=== PATIENT | male | born 1955 | race Caucasian/White ===

== ENCOUNTER 2025-02-25 10:09 | Inpatient (IN) | payer MEDICARE ==
[~2025-02-25] VITALS: Ht 165.1 cm; Wt 54.4 kg
[~2025-02-25 10:09] MED LIST: CLINDAMYCIN PO; DICYCLOMINE HCL20 MG PO; IBUPROFEN400 MG PO; ONDANSETRON ODT4 MG PO; PANTOPRAZOLE SO40 MG PO; TRAZODONE HCL50 MG PO
[2025-02-25 10:43] VITALS: TEMP 97
[2025-02-25] MEDS ORDERED: MECLIZINE HCL25 MG PO (10:53)
[2025-02-25] MEDS ORDERED: ZOLPIDEM TARTRAT5 MG PO (10:53)
[2025-02-25] MEDS ORDERED: HYDROCODON-ACE1 EA11 PO (10:53)
[2025-02-25] MEDS ORDERED: FLOMAX0.4 MG PO (10:53)
[2025-02-25] MEDS ORDERED: METOCLOPRAMIDE H5 MG PO (10:53)
[2025-02-25] MEDS ORDERED: OLANZAPINE2.5 MG PO (10:53)
[2025-02-25] MEDS ORDERED: SUCRALFATE1 GM PO (10:53)
[2025-02-25] MEDS ORDERED: SOD SUL-POTASS177 ML PO (10:53)
[2025-02-25] MEDS ORDERED: PROMETHAZINE HC25 M1 PO (10:53)
[2025-02-25] MEDS: SODIUM CHLORIDE 0.9% 1000ML 1,000 ML IV STA (11:28)
[2025-02-25 11:51] LABS: INR 0.82; PROTHROMBIN TIME 12.1 seconds (11.9-14.5)
[2025-02-25 11:52] LABS: PARTIAL THROMBOPLASTIN TIME 28.4 seconds (23.8-35.5)
[2025-02-25 12:27] LABS: BASOPHILS % 0.6 % (0.0-1.0); EOSINOPHILS % 0.3 % (0.0-6.0); HEMATOCRIT 40.4 % (38.2-49.6); LYMPHOCYTES % 47.1 % (18.0-39.1); MEAN CORPUSCULAR HEMOGLOBIN 24.8 pg (28-32); MEAN CORPUSCULAR HGB CONC 29.7 g/dL (31-35); MEAN CORPUSCULAR VOLUME 83.5 fL (81-99); MONOCYTES # (AUTO) 0.5 (0.2-0.8); MONOCYTES % 8.6 % (4.4-11.3); NEUTROPHILS # (AUTO) 2.7 (2.1-6.9); NEUTROPHILS % 42.9 % (38.7-80.0); PLATELET COUNT 526 x10e3/uL (140-360); RED BLOOD COUNT 4.84 x10e6/uL (4.3-5.7); RED CELL DISTRIBUTION WIDTH 16.1 % (11.7-14.4); WHITE BLOOD COUNT 6.26 x10e3/uL (4.8-10.8)
[2025-02-25 12:42] LABS: ALBUMIN 3.3 g/dL (3.5-5.0); ALBUMIN/GLOBULIN RATIO 0.8 (0.8-2.0); ANION GAP 17.7 mmol/L (8-16); BILIRUBIN,TOTAL 0.6 mg/dL (0.2-1.2); CALCIUM 8.8 mg/dL (8.4-10.2); CREATININE, SERUM 0.84 mg/dL (0.72-1.25); MAGNESIUM 2.1 MG/DL (1.3-2.1); POTASSIUM 4.7 mmol/L (3.5-5.1); TOTAL PROTEIN 7.2 g/dL (6.5-8.1)
[2025-02-25 12:43] LABS: TROPONIN I 0.002 ng/mL (0-0.300)
[2025-02-25] MEDS: ONDANSETRON HCL INJ 2MG/ML 2ML 2 MG/ML VIAL IV STA (12:57)
[2025-02-25] MEDS: Morphine 4mg INJECTION 4 MG/ML INJ IV STA (12:58)
[2025-02-25] MEDS: SODIUM CHLORIDE 0.9% 1000ML 1,000 ML IV SCH (14:25)
[2025-02-25 14:32] VITALS: PULSE 56; RESP 18
[2025-02-25 16:15] VITALS: BP 146/89; PULSE 57; RESP 19; TEMP 97.7; O2SAT 99
[2025-02-25] MEDS: Morphine 4mg INJECTION 4 MG/ML INJ IV PRN (17:47)
[2025-02-25] MEDS: CITRATE OF MAGNESIA 300ML BOTTLE PO ONE (17:47)
[2025-02-25] MEDS: ONDANSETRON HCL INJ 2MG/ML 2ML 2 MG/ML VIAL IV PRN (17:47)
[2025-02-25 20:01] VITALS: BP 120/77; PULSE 77; RESP 20; TEMP 98.1; O2SAT 94
[2025-02-25 23:56] VITALS: BP 114/78; PULSE 72; RESP 20; TEMP 98.4; O2SAT 95
[2025-02-26] VITALS (7 sets, daily range): BP systolic 93–157; BP diastolic 65–76; PULSE 60–70; RESP 18–19; TEMP 97.7–98.6; O2SAT 92–99
[2025-02-26 06:00] LABS: BASOPHILS % 0.6 % (0.0-1.0); EOSINOPHILS % 0.4 % (0.0-6.0); HEMATOCRIT 30.6 % (38.2-49.6); LYMPHOCYTES # (AUTO) 1.7 (1.0-3.2); LYMPHOCYTES % 36.8 % (18.0-39.1); MEAN CORPUSCULAR HEMOGLOBIN 24.4 pg (28-32); MEAN CORPUSCULAR HGB CONC 28.8 g/dL (31-35); MONOCYTES # (AUTO) 0.4 (0.2-0.8); MONOCYTES % 9.4 % (4.4-11.3); NEUTROPHILS # (AUTO) 2.4 (2.1-6.9); NEUTROPHILS % 52.4 % (38.7-80.0); PLATELET COUNT 349 x10e3/uL (140-360); RED CELL DISTRIBUTION WIDTH 16.1 % (11.7-14.4); WHITE BLOOD COUNT 4.67 x10e3/uL (4.8-10.8)
[2025-02-26 06:09] LABS: HEMOGLOBIN 8.8 g/dL (14.0-18.0)
[2025-02-26 06:22] LABS: ALBUMIN 2.4 g/dL (3.5-5.0); ALBUMIN/GLOBULIN RATIO 0.9 (0.8-2.0); ANION GAP 10.4 mmol/L (8-16); BILIRUBIN,TOTAL 0.4 mg/dL (0.2-1.2); CALCIUM 7.4 mg/dL (8.4-10.2); CREATININE, SERUM 0.75 mg/dL (0.72-1.25); TOTAL PROTEIN 5.2 g/dL (6.5-8.1)
[2025-02-26 06:23] LABS: CHOL/HDL RATIO 3.8 (3.9-4.7)
[2025-02-26 06:24] LABS: POTASSIUM 3.4 mmol/L (3.5-5.1)
[2025-02-26 06:35] LABS: ALBUMIN 2.4 g/dL (3.5-5.0); BILIRUBIN,DIRECT 0.2 mg/dL (0.0-0.5); BILIRUBIN,TOTAL 0.4 mg/dL (0.2-1.2); TOTAL PROTEIN 5.1 g/dL (6.5-8.1)
[2025-02-26 06:41] LABS: TROPONIN I 0.012 ng/mL (0-0.300)
[2025-02-26 06:55] LABS: THYROID STIMULATING HORMONE 1.575 uIU/mL (0.350-4.940)
[2025-02-26] MEDS: BISACODYL 5 MG TAB EC PO ONE ×2 (09:07→21:59)
[2025-02-26] MEDS: PROMETHAZINE 12.5MG/ NACL 0.9% 12.5 MG/50 ML BAG IV PRN (11:27)
[2025-02-26] MEDS: MECLIZINE HCL 12.5 MG TAB PO PRN (11:27)
[2025-02-26] MEDS: PEG (High)/E-LYTE SOLN 4,000 ML BTL PO ONE (17:56)
[2025-02-26 18:46] LABS: TROPONIN I 0.007 ng/mL (0-0.300)
[2025-02-27] VITALS (8 sets, daily range): BP systolic 112–160; BP diastolic 76–98; PULSE 68–80; RESP 18–20; TEMP 97.6–98.6; O2SAT 93–96
[2025-02-27 06:05] LABS: BASOPHILS % 0.6 % (0.0-1.0); EOSINOPHILS % 0.8 % (0.0-6.0); HEMATOCRIT 31.2 % (38.2-49.6); HEMOGLOBIN 9.1 g/dL (14.0-18.0); LYMPHOCYTES # (AUTO) 1.7 (1.0-3.2); LYMPHOCYTES % 33.5 % (18.0-39.1); MEAN CORPUSCULAR HEMOGLOBIN 24.6 pg (28-32); MEAN CORPUSCULAR HGB CONC 29.2 g/dL (31-35); MEAN CORPUSCULAR VOLUME 84.3 fL (81-99); MONOCYTES # (AUTO) 0.4 (0.2-0.8); MONOCYTES % 8.5 % (4.4-11.3); NEUTROPHILS # (AUTO) 2.9 (2.1-6.9); NEUTROPHILS % 56.4 % (38.7-80.0); PLATELET COUNT 395 x10e3/uL (140-360); RED CELL DISTRIBUTION WIDTH 15.9 % (11.7-14.4); WHITE BLOOD COUNT 5.17 x10e3/uL (4.8-10.8)
[2025-02-27 08:17] LABS: TROPONIN I 0.006 ng/mL (0-0.300)
[2025-02-27] MEDS: HYOSCYAMINE SULFATE 0.5 MG/ML INJ IV ONE (13:05)
[2025-02-27] MEDS ORDERED: LIDOCAINE HCL 2% LOCAL INJ 5 ML SDV VIAL INJ ONE (15:28)
[2025-02-27] MEDS ORDERED: PROPOFOL IV EMULSION 10 MG/ML 20 ML VIAL ONE (15:28)
[2025-02-27] MEDS ORDERED: PHENYLEPHRINE HCL 1% 10 MG/ML VIAL ONE (16:25)
[2025-02-27] MEDS: CITRATE OF MAGNESIA 300ML BOTTLE PO ONE (18:00)
[2025-02-27] MEDS: BISACODYL 5 MG TAB EC PO ONE (18:02)
[2025-02-28] VITALS (8 sets, daily range): BP systolic 112–142; BP diastolic 77–89; PULSE 60–77; RESP 16–20; TEMP 97.9–98.3; O2SAT 92–97
[2025-02-28] MEDS: TRAMADOL HCL 50 MG TAB PO PRN (10:13)
[2025-02-28 11:00] LABS: BASOPHILS % 0.2 % (0.0-1.0); EOSINOPHILS % 0.7 % (0.0-6.0); HEMATOCRIT 35.2 % (38.2-49.6); HEMOGLOBIN 10.4 g/dL (14.0-18.0); LYMPHOCYTES # (AUTO) 1.1 (1.0-3.2); LYMPHOCYTES % 20.7 % (18.0-39.1); MEAN CORPUSCULAR HEMOGLOBIN 24.5 pg (28-32); MEAN CORPUSCULAR HGB CONC 29.5 g/dL (31-35); MONOCYTES # (AUTO) 0.5 (0.2-0.8); MONOCYTES % 9.9 % (4.4-11.3); NEUTROPHILS # (AUTO) 3.7 (2.1-6.9); NEUTROPHILS % 68.3 % (38.7-80.0); PLATELET COUNT 443 x10e3/uL (140-360); RED BLOOD COUNT 4.24 x10e6/uL (4.3-5.7); RED CELL DISTRIBUTION WIDTH 16.6 % (11.7-14.4); WHITE BLOOD COUNT 5.45 x10e3/uL (4.8-10.8)
[2025-03-01] VITALS (7 sets, daily range): BP systolic 107–120; BP diastolic 73–83; PULSE 58–92; RESP 18–20; TEMP 97.5–98.3; O2SAT 96–100
[2025-03-01] MEDS: CITRATE OF MAGNESIA 300ML BOTTLE PO ONE (18:34)
[2025-03-02] VITALS (7 sets, daily range): BP systolic 118–145; BP diastolic 73–85; PULSE 54–80; RESP 18; TEMP 97.3–98.1; O2SAT 94–99
[2025-03-02 10:47] LABS: BASOPHILS % 0.2 % (0.0-1.0); EOSINOPHILS % 0.5 % (0.0-6.0); HEMATOCRIT 31.1 % (38.2-49.6); HEMOGLOBIN 9.4 g/dL (14.0-18.0); LYMPHOCYTES # (AUTO) 1.2 (1.0-3.2); LYMPHOCYTES % 29.4 % (18.0-39.1); MEAN CORPUSCULAR HEMOGLOBIN 24.8 pg (28-32); MEAN CORPUSCULAR HGB CONC 30.2 g/dL (31-35); MEAN CORPUSCULAR VOLUME 82.1 fL (81-99); MONOCYTES # (AUTO) 0.3 (0.2-0.8); MONOCYTES % 6.9 % (4.4-11.3); NEUTROPHILS # (AUTO) 2.6 (2.1-6.9); NEUTROPHILS % 62.8 % (38.7-80.0); PLATELET COUNT 367 x10e3/uL (140-360); RED BLOOD COUNT 3.79 x10e6/uL (4.3-5.7); RED CELL DISTRIBUTION WIDTH 16.9 % (11.7-14.4); WHITE BLOOD COUNT 4.18 x10e3/uL (4.8-10.8)
[2025-03-02 11:12] LABS: ANION GAP 11.5 mmol/L (8-16); CALCIUM 7.7 mg/dL (8.4-10.2); CARBON DIOXIDE 23 mmol/L (22-29); CHLORIDE 107 mmol/L (98-107); GLUCOSE 103 mg/dL (74-118); POTASSIUM 3.5 mmol/L (3.5-5.1); SODIUM 138 mmol/L (136-145)
[2025-03-02 11:28] LABS: BLOOD UREA NITROGEN < 5 mg/dL (7-26); EST GLOMERULAR FILTRATION RATE 99 ML/MIN (>=60)
[2025-03-02 11:31] LABS: BUN/CREATININE RATIO 7 (6-25)
[2025-03-02] MEDS: BISACODYL 5 MG TAB EC PO ONE (15:21)
[2025-03-03] VITALS (9 sets, daily range): BP systolic 112–147; BP diastolic 67–84; PULSE 53–62; RESP 18–20; TEMP 96.7–97.5; O2SAT 94–100
[2025-03-03] MEDS: BISACODYL 5 MG TAB EC PO ONE (08:57)
[2025-03-03] MEDS ORDERED: PROPOFOL IV EMULSION 10 MG/ML 20 ML VIAL ONE (13:12)
[2025-03-03] MEDS ORDERED: LIDOCAINE HCL 2% LOCAL INJ 5 ML SDV VIAL INJ ONE (13:12)
[2025-03-03] MEDS: PEG (High)/E-LYTE SOLN 4,000 ML BTL PO ONE (21:09)
[2025-03-04] VITALS (8 sets, daily range): BP systolic 112–152; BP diastolic 62–82; PULSE 52–61; RESP 16–20; TEMP 97.3–98.1; O2SAT 95–100
[2025-03-04] MEDS: WHEAT DEXTRIN 80 GM POWDER PO SCH (17:05)
[2025-03-04] MEDS: LACTULOSE SYRUP 20 GM/30 ML UDC PO PRN (17:06)
[2025-03-05 03:27] VITALS: BP 116/76; PULSE 61; RESP 18; TEMP 97.7; O2SAT 100
[2025-03-05 07:16] LABS: FERRITIN 18.25 ng/mL (21.81-274.66)
[2025-03-05 08:00] VITALS: BP 127/75; PULSE 62; RESP 18; TEMP 97.5; O2SAT 97
[2025-03-05 12:00] VITALS: BP 111/69; PULSE 63; RESP 17; TEMP 98.9; O2SAT 96
[2025-03-05] MEDS: LUBIPROSTONE 24 MCG CAP PO SCH (13:07)
[2025-03-05] MEDS: SENNA-S TABLET PO SCH (14:09)
[2025-03-05 16:00] VITALS: BP 118/76; PULSE 89; RESP 17; TEMP 98.2; O2SAT 94
[2025-03-05] MEDS: TAMSULOSIN HCL 0.4 MG CAP PO SCH (17:36)
[2025-03-05] MEDS ORDERED: MIRTAZAPINE 15 MG TAB PO SCH (18:00)
[2025-03-05 19:27] VITALS: BP 107/75; PULSE 84; RESP 18; TEMP 98.1; O2SAT 95
[2025-03-05] MEDS: MIRTAZAPINE 15 MG TAB PO SCH (21:26)
[2025-03-05 23:07] VITALS: BP 109/75; PULSE 78; RESP 18; TEMP 97.9; O2SAT 96
[2025-03-06 05:05] VITALS: BP 126/76; PULSE 74; RESP 18; TEMP 97.4; O2SAT 95
[2025-03-06 06:03] LABS: BASOPHILS % 0.5 % (0.0-1.0); EOSINOPHILS % 0.5 % (0.0-6.0); HEMATOCRIT 32.9 % (38.2-49.6); HEMOGLOBIN 9.7 g/dL (14.0-18.0); LYMPHOCYTES # (AUTO) 1.8 (1.0-3.2); LYMPHOCYTES % 30.2 % (18.0-39.1); MEAN CORPUSCULAR HEMOGLOBIN 24.9 pg (28-32); MEAN CORPUSCULAR HGB CONC 29.5 g/dL (31-35); MEAN CORPUSCULAR VOLUME 84.4 fL (81-99); MONOCYTES # (AUTO) 0.5 (0.2-0.8); MONOCYTES % 8.3 % (4.4-11.3); NEUTROPHILS # (AUTO) 3.6 (2.1-6.9); PLATELET COUNT 327 x10e3/uL (140-360); RED CELL DISTRIBUTION WIDTH 17.2 % (11.7-14.4); WHITE BLOOD COUNT 5.92 x10e3/uL (4.8-10.8)
[2025-03-06 06:38] LABS: ANION GAP 13.9 mmol/L (8-16); CREATININE, SERUM 0.83 mg/dL (0.72-1.25); POTASSIUM 3.9 mmol/L (3.5-5.1)
[2025-03-06 07:45] VITALS: BP 124/86; PULSE 106; RESP 19; TEMP 98; O2SAT 96
[2025-03-06 08:30] VITALS: BP 124/86; PULSE 106; RESP 19; TEMP 98; O2SAT 96
[2025-03-06 11:36] VITALS: BP 106/71; PULSE 64; RESP 19; TEMP 98; O2SAT 96
[2025-03-06 20:00] VITALS: BP 100/69; PULSE 92; RESP 18; TEMP 99; O2SAT 97
[2025-03-07] VITALS (7 sets, daily range): BP systolic 100–131; BP diastolic 66–82; PULSE 75–91; RESP 19–20; TEMP 97–100; O2SAT 95–100
[2025-03-07] MEDS: FOLIC ACID 1 MG TAB PO SCH (08:59)
[2025-03-07] MEDS: POLYSACCARIDE IRON COMPLEX 150 MG CAP PO SCH (09:00)
[2025-03-07] MEDS: ACETAMINOPHEN 325 MG TAB PO PRN (22:20)
[2025-03-08] VITALS (7 sets, daily range): BP systolic 100–140; BP diastolic 65–82; PULSE 67–92; RESP 18–20; TEMP 97.2–101.4; O2SAT 95–98
[2025-03-08 05:39] LABS: BASOPHILS % 0.4 % (0.0-1.0); EOSINOPHILS % 0.2 % (0.0-6.0); HEMATOCRIT 33.4 % (38.2-49.6); HEMOGLOBIN 9.7 g/dL (14.0-18.0); LYMPHOCYTES # (AUTO) 1.9 (1.0-3.2); LYMPHOCYTES % 21.9 % (18.0-39.1); MEAN CORPUSCULAR HEMOGLOBIN 24.6 pg (28-32); MEAN CORPUSCULAR VOLUME 84.6 fL (81-99); MONOCYTES % 11.5 % (4.4-11.3); NEUTROPHILS # (AUTO) 5.6 (2.1-6.9); NEUTROPHILS % 65.5 % (38.7-80.0); PLATELET COUNT 295 x10e3/uL (140-360); RED BLOOD COUNT 3.95 x10e6/uL (4.3-5.7); RED CELL DISTRIBUTION WIDTH 17.2 % (11.7-14.4)
[2025-03-08 06:01] LABS: ANION GAP 13.7 mmol/L (8-16); CALCIUM 8.3 mg/dL (8.4-10.2); CREATININE, SERUM 0.76 mg/dL (0.72-1.25); POTASSIUM 3.7 mmol/L (3.5-5.1)
[2025-03-08] MEDS: TRAMADOL HCL 50 MG TAB PO PRN (08:00)
[2025-03-08] MEDS: FINASTERIDE 5 MG TAB PO SCH (11:38)
[2025-03-09] VITALS (8 sets, daily range): BP systolic 94–121; BP diastolic 65–85; PULSE 63–95; RESP 18–19; TEMP 96.8–98.2; O2SAT 94–99
[2025-03-09] MEDS: ONDANSETRON HCL 4 MG ORAL DISINTEGRATING TAB PO PRN (17:17)
[2025-03-10] VITALS (8 sets, daily range): BP systolic 88–108; BP diastolic 62–72; PULSE 76–89; RESP 18–19; TEMP 97.7–98.4; O2SAT 95–98
[2025-03-10] MEDS: PANTOPRAZOLE SOD 40 MG TABEC PO SCH (07:34)
[2025-03-11] VITALS (7 sets, daily range): BP systolic 98–109; BP diastolic 61–71; PULSE 60–83; RESP 17–18; TEMP 97.4–98.6; O2SAT 96–98
[2025-03-12] VITALS (7 sets, daily range): BP systolic 92–115; BP diastolic 56–71; PULSE 50–86; RESP 16–19; TEMP 97.4–98.6; O2SAT 93–100
[2025-03-12 06:16] LABS: BASOPHILS % 0.7 % (0.0-1.0); EOSINOPHILS # (AUTO) 0.1 (0.0-0.4); EOSINOPHILS % 3.4 % (0.0-6.0); HEMATOCRIT 32.3 % (38.2-49.6); HEMOGLOBIN 9.4 g/dL (14.0-18.0); LYMPHOCYTES # (AUTO) 1.2 (1.0-3.2); LYMPHOCYTES % 29.7 % (18.0-39.1); MEAN CORPUSCULAR HEMOGLOBIN 24.6 pg (28-32); MEAN CORPUSCULAR HGB CONC 29.1 g/dL (31-35); MEAN CORPUSCULAR VOLUME 84.6 fL (81-99); MONOCYTES # (AUTO) 0.4 (0.2-0.8); MONOCYTES % 10.3 % (4.4-11.3); NEUTROPHILS # (AUTO) 2.3 (2.1-6.9); NEUTROPHILS % 55.7 % (38.7-80.0); PLATELET COUNT 346 x10e3/uL (140-360); RED BLOOD COUNT 3.82 x10e6/uL (4.3-5.7); RED CELL DISTRIBUTION WIDTH 17.2 % (11.7-14.4); WHITE BLOOD COUNT 4.08 x10e3/uL (4.8-10.8)
[2025-03-12 06:45] LABS: ANION GAP 12.3 mmol/L (8-16); CALCIUM 8.7 mg/dL (8.4-10.2); CREATININE, SERUM 0.85 mg/dL (0.72-1.25); POTASSIUM 4.3 mmol/L (3.5-5.1)
[2025-03-12 07:03] LABS: MAGNESIUM 1.9 MG/DL (1.3-2.1); PHOSPHORUS 4.1 MG/DL (2.3-4.7)
[2025-03-13] VITALS: BP 95/61; PULSE 75; RESP 18; TEMP 97.9; O2SAT 97
[2025-03-13 04:00] VITALS: BP 98/72; PULSE 76; RESP 18; TEMP 98; O2SAT 95
[2025-03-13 08:17] VITALS: BP 105/75; PULSE 69; RESP 18; TEMP 97.7; O2SAT 97
[2025-03-13 12:42] VITALS: BP 110/82; PULSE 66; RESP 18; TEMP 98.2; O2SAT 98
[2025-03-13 16:35] VITALS: BP 108/78; PULSE 81; RESP 18; TEMP 98.5; O2SAT 96
== END 2025-03-13 17:00 | disposition home or self-care (01) | DRG 388 ==
LOC: ER 10:18 → ERHOLD 13:04 → MED/SURG2 15:44
PROVIDERS: ADMIT Internal Medicine; ATTEND Internal Medicine
DX: K56.0 Paralytic ileus (principal); E43 Unspecified severe protein-calorie malnutrition; N13.8 Other obstructive and reflux uropathy; D68.9 Coagulation defect, unspecified; N13.30 Unspecified hydronephrosis; R63.4 Abnormal weight loss; N40.1 Benign prostatic hyperplasia with lower urinary tract symptoms; N39.498 Other specified urinary incontinence; R33.8 Other retention of urine; R26.89 Other abnormalities of gait and mobility; K59.00 Constipation, unspecified; D64.9 Anemia, unspecified; K20.90 Esophagitis, unspecified without bleeding; R63.0 Anorexia; F03.90 Unspecified dementia, unspecified severity, without behavioral disturbance, psychotic disturbance, mood disturbance, and anxiety; F41.9 Anxiety disorder, unspecified; F20.9 Schizophrenia, unspecified; K21.9 Gastro-esophageal reflux disease without esophagitis; K22.70 Barrett's esophagus without dysplasia; Z53.09 Procedure and treatment not carried out because of other contraindication; R53.81 Other malaise; R11.10 Vomiting, unspecified; T50.995A Adverse effect of other drugs, medicaments and biological substances, initial encounter; Y92.230 Patient room in hospital as the place of occurrence of the external cause; Z91.81 History of falling; Z88.0 Allergy status to penicillin; Z79.891 Long term (current) use of opiate analgesic; Z68.20 Body mass index [BMI] 20.0-20.9, adult
CPT/HCPCS: 36415; 43239; 45378; 51798; 71045; 74176; 74177; 80048; 80053; 80061; 80076; 82550; 82607; 82728; 82746; 83540; 83690; 83735; 83970; 84100; 84443; 84466; 84484; 85025; 85045; 85610; 85730; 86039; 86850; 86900; 88305; 88313; 88342; 93005; 94760; 99252; 99284; J1980; J2003; J2270; J2371; J2405; J2470; J2550; J7030; Q0162